=== PATIENT | male | born 1965 | race Two or more races ===

== ENCOUNTER 2018-01-14 09:25 | Inpatient (IN) | payer MEDICAID ==
[2018-01-14] VITALS (9 sets, daily range): BP systolic 135–198; BP diastolic 73–119; Ht 165.1 cm; Wt 70.4 kg
[~2018-01-14] VITALS: Ht 165.1 cm; Wt 70.4 kg
[2018-01-14 10:05] LABS: BASOPHIL % 0.5 % (0-2); PLATELET COUNT 215 x10^3mcL (130-400)
[2018-01-14 10:17] LABS: CALCIUM 8.2 mg/dL (8.5-10.1); CARBON DIOXIDE 35.5 mmol/L (21-32); CHLORIDE SERUM 107 mmol/L (98-107); GFR1 > 60 mL/min; GLUCOSE SERUM 89 mg/dL (74-106); SODIUM SERUM 145 mmol/L (136-145)
[2018-01-14 10:22] LABS: ALKALINE PHOSPHATASE 168 U/L (46-116); ALT/SGPT 101 U/L (16-63); AMYLASE 46 U/L (25-115); AST/SGOT 35 U/L (15-37); BILIRUBIN TOTAL 0.5 mg/dL (0.20-1.00); LIPASE 97 IU/L (73-393); TOTAL PROTEIN, SERUM 6.6 g/dL (6.4-8.2)
[2018-01-14 10:24] LABS: ALBUMIN 3.2 g/dL (3.4-5.0)
[2018-01-14 10:43] LABS: RED CELL DISTRIBUTION WIDTH 16.2 % (11.5-14.5)
[2018-01-14] MEDS ORDERED: ATENOLOL50 MG PO (15:28)
[2018-01-14 17:02] LABS: microscopic required? NO
[2018-01-14 17:09] LABS: urine erythrocyte NEGATIVE (NEGATIVE)
[2018-01-14 17:19] LABS: AMPHETAMINE QUAL UR NONE DETECTED (See below)
[2018-01-14 17:23] LABS: CHOLESTEROL/HDL RATIO 4.4; MAGNESIUM 1.9 mg/dL (1.8-2.4); PHOSPHOROUS 2.6 mg/dL (2.5-4.9)
[2018-01-14 17:36] LABS: FREE T4 1.11 ng/dL (0.76-1.46); FREE THYROXINE INDEX 3.1 ug/dL (1.4-4.5); T4(THYROXINE) 8.4 ug/dL (4.7-13.3)
[2018-01-14] MEDS ORDERED: LOV60I SC (17:40)
[2018-01-14] MEDS ORDERED: CLOPIDOGREL75 M1 PO (17:41)
[2018-01-14] MEDS ORDERED: ATORVASTATIN CA40 M1 PO (17:43)
[2018-01-14] MEDS ORDERED: ECO81 PO (17:44)
[2018-01-14] MEDS ORDERED: TOP50 PO (17:44)
[2018-01-14] MEDS ORDERED: ZOFI IV (17:45)
[2018-01-14 18:38] LABS: T3 TOTAL 0.98 ng/mL
[2018-01-15 00:20] VITALS: BP 145/82
== END 2018-01-15 00:35 | disposition short-term general hospital (02) | DRG 190 ==
LOC: ED 09:25 → DU 11:58
PROVIDERS: Emergency Medicine; Internal Medicine
DX: I21.3 ST elevation (STEMI) myocardial infarction of unspecified site (principal); E44.0 Moderate protein-calorie malnutrition; I50.9 Heart failure, unspecified; I44.7 Left bundle-branch block, unspecified; I16.1 Hypertensive emergency; R51 Headache; E87.6 Hypokalemia; E78.5 Hyperlipidemia, unspecified; Z68.26 Body mass index [BMI] 26.0-26.9, adult
CPT/HCPCS: 83880; 84439; J0360; J1650; J1885; J2270; J2405; J3490; Q0092

== ENCOUNTER 2018-03-03 23:05 | Inpatient (IN) | payer SELFPAY ==
[~2018-03-03] VITALS: Ht 165.1 cm; Wt 70.0 kg
[~2018-03-03 23:05] MED LIST: ATENOLOL50 MG PO; ATORVASTATIN CA40 M1 PO; CLOPIDOGREL75 M1 PO; ECO81 PO; LOV60I SC; TOP50 PO; ZOFI IV
[2018-03-03 23:14] VITALS: Ht 165.1 cm; Wt 70.0 kg
[2018-03-04] VITALS (8 sets, daily range): BP systolic 141–179; BP diastolic 76–114
[2018-03-04 00:12] LABS: BASOPHIL % 0.9 % (0-2); PLATELET COUNT 193 x10^3mcL (130-400)
[2018-03-04 00:15] LABS: microscopic required? NO
[2018-03-04 00:19] LABS: RED CELL DISTRIBUTION WIDTH 15.1 % (11.5-14.5)
[2018-03-04 00:24] LABS: urine erythrocyte NEGATIVE (NEGATIVE)
[2018-03-04 00:37] LABS: AMPHETAMINE QUAL UR NONE DETECTED (See below)
[2018-03-04 00:43] LABS: ALBUMIN 3.5 g/dL (3.4-5.0); ALKALINE PHOSPHATASE 190 U/L (46-116); ALT/SGPT 40 U/L (16-63); AST/SGOT 29 U/L (15-37); BILIRUBIN TOTAL 0.4 mg/dL (0.20-1.00); CALCIUM 8.9 mg/dL (8.5-10.1); CHLORIDE SERUM 106 mmol/L (98-107); CREATININE SERUM 1.5 mg/dL (0.7-1.3); FREE T4 1.11 ng/dL (0.76-1.46); GFR1 52 mL/min; GLUCOSE SERUM 110 mg/dL (74-106); LIPASE 162 IU/L (73-393); SODIUM SERUM 145 mmol/L (136-145); TOTAL PROTEIN, SERUM 7.4 g/dL (6.4-8.2)
[2018-03-04 00:51] LABS: POTASSIUM SERUM 2.6 mmol/L (3.5-5.1)
[2018-03-04 02:30] LABS: MAGNESIUM 2.3 mg/dL (1.8-2.4)
[2018-03-04] MEDS ORDERED: LIPITOR40 MG PO (03:30)
[2018-03-04] MEDS ORDERED: NOR10 PO ×2 (03:31→03:34)
[2018-03-04] MEDS ORDERED: KLOR-CON M2020 MEQ PO (03:31)
[2018-03-04] MEDS ORDERED: ISOSORBIDE MONO30 MG PO (03:32)
[2018-03-04] MEDS ORDERED: MINOXIDIL2.5 MG PO (03:33)
[2018-03-04] MEDS ORDERED: LISINOPRIL40 MG PO (03:34)
[2018-03-04] MEDS ORDERED: COREG6.25 M1 PO (03:34)
[2018-03-04 05:05] LABS: BASOPHIL % 0.4 % (0-2); PLATELET COUNT 181 x10^3mcL (130-400)
[2018-03-04 05:07] LABS: CALCIUM 8.6 mg/dL (8.5-10.1); CARBON DIOXIDE 34.3 mmol/L (21-32); CREATININE SERUM 1.4 mg/dL (0.7-1.3); MAGNESIUM 2.2 mg/dL (1.8-2.4); PHOSPHOROUS 2.6 mg/dL (2.5-4.9); POTASSIUM SERUM 3.1 mmol/L (3.5-5.1)
[2018-03-05 03:10] VITALS: BP 156/93
[2018-03-05 05:54] LABS: CALCIUM 8.8 mg/dL (8.5-10.1); CARBON DIOXIDE 28.6 mmol/L (21-32); CHLORIDE SERUM 107 mmol/L (98-107); CREATININE SERUM 1.3 mg/dL (0.7-1.3); GFR1 > 60 mL/min; GLUCOSE SERUM 93 mg/dL (74-106); MAGNESIUM 1.9 mg/dL (1.8-2.4); PHOSPHOROUS 3.9 mg/dL (2.5-4.9); SODIUM SERUM 144 mmol/L (136-145)
[2018-03-05 05:56] LABS: POTASSIUM SERUM 2.7 mmol/L (3.5-5.1)
[2018-03-05 07:43] LABS: BASOPHIL % 0.5 % (0-2); PLATELET COUNT 181 x10^3mcL (130-400)
[2018-03-05 07:45] LABS: RED CELL DISTRIBUTION WIDTH 15.6 % (11.5-14.5)
[2018-03-05 12:18] VITALS: BP 157/95
[2018-03-05 16:09] VITALS: BP 169/106
[2018-03-05 16:23] VITALS: BP 87/56
[2018-03-05 18:20] VITALS: BP 163/94
[2018-03-05 21:21] VITALS: BP 140/80
[2018-03-06 04:48] VITALS: BP 127/64
[2018-03-06 06:34] LABS: BASOPHIL % 0.4 % (0-2); PLATELET COUNT 196 x10^3mcL (130-400)
[2018-03-06 06:39] LABS: CALCIUM 8.8 mg/dL (8.5-10.1); CARBON DIOXIDE 30.1 mmol/L (21-32); CREATININE SERUM 1.6 mg/dL (0.7-1.3); MAGNESIUM 2.3 mg/dL (1.8-2.4); PHOSPHOROUS 4.9 mg/dL (2.5-4.9)
[2018-03-06 06:44] LABS: POTASSIUM SERUM 2.8 mmol/L (3.5-5.1)
[2018-03-06 06:45] LABS: RED CELL DISTRIBUTION WIDTH 15.2 % (11.5-14.5)
[2018-03-06 08:34] VITALS: BP 127/62
[2018-03-06 12:16] VITALS: BP 137/87
[2018-03-06] MEDS ORDERED: ADA30 PO (12:36)
[2018-03-06] MEDS ORDERED: CARVEDILOL12.5 M1 PO (12:37)
[2018-03-06 14:51] VITALS: BP 137/87
[2018-03-06] MEDS ORDERED: IBU800 M2 PO (15:51)
[2018-03-06] MEDS ORDERED: FUROSEMIDE40 MG PO (15:55)
== END 2018-03-06 20:24 | disposition home or self-care (01) | DRG 682 ==
LOC: ED 23:05 → IC 03-04 02:08 → DU 03-04 02:08 → IC 03-04 02:38 → DU 03-05 15:58
PROVIDERS: Emergency Medicine; Internal Medicine
DX: N17.0 Acute kidney failure with tubular necrosis (principal); I50.43 Acute on chronic combined systolic (congestive) and diastolic (congestive) heart failure; I42.9 Cardiomyopathy, unspecified; I16.1 Hypertensive emergency; J81.1 Chronic pulmonary edema; I25.10 Atherosclerotic heart disease of native coronary artery without angina pectoris; I11.0 Hypertensive heart disease with heart failure; I16.0 Hypertensive urgency; E87.6 Hypokalemia; E78.5 Hyperlipidemia, unspecified; Z95.810 Presence of automatic (implantable) cardiac defibrillator; I25.2 Old myocardial infarction
CPT/HCPCS: 83880; 84439; 87804; 94150; G0480; J0360; J1940; J2270; J3480; J3490; J7620; Q0092

== ENCOUNTER 2018-06-04 12:29 | Inpatient (IN) | payer MEDICAID ==
[~2018-06-04] VITALS: Ht 165.1 cm; Wt 74.6 kg
[~2018-06-04 12:29] MED LIST changes: +ADA30 PO; +CARVEDILOL12.5 M1 PO; +COREG6.25 M1 PO; +FUROSEMIDE40 MG PO; +IBU800 M2 PO; +KLOR-CON M2020 MEQ PO; +LIPITOR40 MG PO; +LISINOPRIL40 MG PO; +MINOXIDIL2.5 MG PO; +NOR10 PO
--- NOTE | 2018-06-04 12:43 | NUR ---
EKG IN PROG
[2018-06-04 13:34] LABS: AMPHETAMINE QUAL UR NONE DETECTED (See below)
[2018-06-04 13:34] LABS: ALBUMIN 3.7 g/dL (3.4-5.0); ALKALINE PHOSPHATASE 158 U/L (46-116); ALT/SGPT 38 U/L (16-63); AST/SGOT 31 U/L (15-37); BILIRUBIN TOTAL 0.3 mg/dL (0.20-1.00); CALCIUM 8.3 mg/dL (8.5-10.1); CARBON DIOXIDE 33.2 mmol/L (21-32); CHLORIDE SERUM 106 mmol/L (98-107); CREATININE SERUM 1.3 mg/dL (0.7-1.3); GFR1 > 60 mL/min; GLUCOSE SERUM 98 mg/dL (74-106); SODIUM SERUM 144 mmol/L (136-145); TOTAL PROTEIN, SERUM 7.6 g/dL (6.4-8.2)
[2018-06-04 13:35] LABS: POTASSIUM SERUM 2.8 mmol/L (3.5-5.1)
[2018-06-04 13:39] LABS: BASOPHIL % 0.7 % (0-2); PLATELET COUNT 203 x10^3mcL (130-400)
[2018-06-04 13:44] LABS: RED CELL DISTRIBUTION WIDTH 15.1 % (11.5-14.5)
--- NOTE | 2018-06-04 13:57 | NUR ---
PT PRESENTED TO THE ED FOR CHEST PAIN LOCATED OVER RIGHT LOWER PEC, OVER PACEMAKER INSERTION SITE, AND IN RIGHT GROIN X 2 MONTHS. PT STATES THEY HAD A PACEMAKER PLACED IN JANUARY 2018 AND HAS BEEN FEELING A "PULSING" PAIN IN THE AREA FOR THE LAST 2 MONTHS. PT STATES PAIN IN GROIN IS AT SITE OF PAST SURGERY. PT STATES PAIN RADIATES TO RIGHT SIDE OF NECK. DENIES ANY NAUSEA, VOMITING, DIARRHEA, FEVER, OR SOB. PT STATES PAIN HAS BEEN CONSTANT AND NOTHING MAKES IT BETTER OR WORSE. PT IN NAD. BREATHING EVEN AND UNLABORED. AWAKE, ALERT, AND ORIENTED. WILL CONTINUE TO MONITOR. MSE COMPLETED BY DR BLOOD.
[2018-06-04 14:47] LABS: microscopic required? NO
[2018-06-04 14:51] LABS: urine erythrocyte NEGATIVE (NEGATIVE)
[2018-06-04] MEDS ORDERED: LASIX40 MG PO (15:08)
[2018-06-04] MEDS ORDERED: ZESTRIL40 MG PO (15:09)
[2018-06-04] MEDS ORDERED: ADALAT CC30 MG PO (15:09)
[2018-06-04 15:11] LABS: CHOLESTEROL/HDL RATIO 5.6; MAGNESIUM 2.3 mg/dL (1.8-2.4); PHOSPHOROUS 3.4 mg/dL (2.5-4.9)
[2018-06-04 15:20] LABS: FREE T4 1.03 ng/dL (0.76-1.46); T4(THYROXINE) 8.9 ug/dL (4.7-13.3)
--- NOTE | 2018-06-04 15:27 | NUR ---
REPORT CALLED TO JACKIE EXT [phone]
[2018-06-04 15:28] LABS: T3 TOTAL 1.24 ng/mL
--- NOTE | 2018-06-04 15:36 | NUR ---
RECEIVED PT FROM ED VIA [facility], CAME IN DUE TO LEFT CHEST PAIN. AAOX4. C/O 7/10 HEADACHE AND MILD DIZZINESS. ABLE TO FOLLOW COMMANDS. NO SOB NOTED, LUNG SOUNDS CTA. C/O 7/10 LEFT SIDED CHEST PAIN DESCRIBED PRESSURE, SR W/ BBB AND ELEVATED ST. W/ LEFT CHEST PACEMAKER. DENIES ABDOMINAL DISCOMFORT. C/O 9/10 RLE PAIN, ABLE TO MOVE ALL EXTREMITIES. IV SITE ON THE LAC GAUGE 20 IS PATENT AND INTACT. SIDE RAILS UPX2. CALL LIGHT ON REACH. ENDORSED TO PRIMARY NURSE JACKIE FOR CONTINUITY OF CARE
[2018-06-04 15:47] VITALS: BP 129/80
[2018-06-04 15:50] VITALS: Ht 165.1 cm; Wt 74.6 kg
--- NOTE | 2018-06-04 16:00 | NUR ---
PT C/O RIGHT LOWER LEG PAIN 5/10, MEDICATED PER EMAR.
[2018-06-04 16:40] VITALS: BP 129/83
[2018-06-04] MEDS ORDERED: LIPITOR40 MG PO (16:47)
[2018-06-04] MEDS ORDERED: CARVEDILOL12.5 M1 PO (17:00)
[2018-06-04] MEDS ORDERED: ISOSORBIDE MONO30 MG PO (17:01)
[2018-06-04] MEDS ORDERED: CLOPIDOGREL75 M1 PO (17:01)
[2018-06-04] MEDS ORDERED: ECO81 PO (17:01)
--- NOTE | 2018-06-04 17:10 | NUR ---
PT STATED RIGHT UPPER LEG PAIN IS MUCH BETTER WITH NORCO. DENIES ANY CP OR PRESSURE. WILL CONTINUE PLAN OF CARE .
--- NOTE | 2018-06-04 18:10 | NUR ---
NO ACUTE CHANGES AT THIS TIME. NO ACUTE RESP DISTRESS OR SOB NOTED. DENIES ANY CP OR PRESSURE. IV TO THE LAC INTACT AND PATIENT. KCI 20 MEQ CURRENTLY INFUSING AT 68.1 MLS/HR DENIES ANY PAIN OR DISCOMFORT AT SITE. CALL LIGHT IN REACH. BED IN LOW POSITION. WILL ENDORSE TO INCOMING RN.
[2018-06-04 21:10] VITALS: BP 136/86
--- NOTE | 2018-06-04 21:24 | NUR ---
RECEIVED PT IN BED AAOX4 NO ACUTE DISTRESS NOTED , PT DENY CHEST PAIN AT THE MOMENT , TELE NUMBER 8 SHOWS PACED, PIV INTACT INFUSING WELL K-RIDER , LUNG SOUNDS CTA , ABD SOFT BS ACTIVE X4, CALL LIGHT WITHIN PT'S REACH , WILL CON'T TO MONITOR AND ASSIST PT WITH CARE .
--- NOTE | 2018-06-05 02:10 | NUR ---
PT'S IN BED WITH EYES CLOSED , TELE PACED .
[2018-06-05 05:54] VITALS: BP 156/108
[2018-06-05 06:20] LABS: BASOPHIL % 0.9 % (0-2); PLATELET COUNT 204 x10^3mcL (130-400)
--- NOTE | 2018-06-05 06:28 | NUR ---
NO CHANGES OF CONDITION NOTED ALL DUE MEDS GIVEN NO REACTION NOTED,PT'S IN BED AWAKE NO ACUTE DISTRESS NOTED, HL INTACT , TELE NSR .
[2018-06-05 06:31] LABS: CALCIUM 8.8 mg/dL (8.5-10.1); CARBON DIOXIDE 29.1 mmol/L (21-32); CHLORIDE SERUM 107 mmol/L (98-107); CREATININE SERUM 1.3 mg/dL (0.7-1.3); GFR1 > 60 mL/min; GLUCOSE SERUM 94 mg/dL (74-106); SODIUM SERUM 145 mmol/L (136-145)
[2018-06-05 06:39] LABS: POTASSIUM SERUM 2.8 mmol/L (3.5-5.1)
[2018-06-05 06:43] LABS: RED CELL DISTRIBUTION WIDTH 15.1 % (11.5-14.5)
--- NOTE | 2018-06-05 06:53 | NUR ---
K+2.8 BETTY SCHMIDT , WILL ENDORSE TO AM NURSE TO F/U.
--- NOTE | 2018-06-05 07:30 | NUR ---
PATIENT SITTIING UP IN BED, AWAKE, ALERT ABLE TO VERBALIZE NEEDS WELL. HL LEFT A/C, FLUSHED WELL, NO REDNESS OR SWELLING NOTED. TELE 8 PACED ON DEMAND. DENIES ANY CHEST PAIN AT THIS TIME. RESP EVEN AND UNLABORED, LUNGS CLEAR ON ROOM AIR. AMBULATES AD RIRI TO THE BATHROOM. NO ACUTE DISTRESS NOTED. WILL CONTINUE TO MONITOR.
[2018-06-05 08:40] VITALS: BP 176/106
--- NOTE | 2018-06-05 09:05 | NUR ---
PATIENT'S PLAN OF CARE WAS DISCUSSED AND REVIEWED WITH WOOL WASHER: ANTONIETTA MOJICA
[2018-06-05 11:34] VITALS: BP 156/96
--- NOTE | 2018-06-05 13:36 | NUR ---
PATIENT REMAINS IN BED. K-ERNESTINE INFUSING WELL FOR K+ LEVEL OF 2.8 TODAY. ORAL K+ ALSO GIVEN. MEDICATED EARLIER WITH NORCO PO FOR C/O H/A WITH GOOD RELIEF PER PATIENT. NO ACUTE DISTRESS NOTED. WILL CONTINUE TO MONITOR.
--- NOTE | 2018-06-05 15:20 | NUR ---
PATIENT REMAINS IN BED WATCHING TV. NO FURTHER C/O H/A. NO ACUTE DISTRESS NOTED. WILL CONTINUE TO MONITOR.
--- NOTE | 2018-06-05 16:26 | NUR ---
PATIENT C/O HAVING DRY EYES. DR GONZALES NOTIFIED AND NEW ORDER RECEIVED. PATIENT MEDICATED WITH TEARISOL OPTH GTTS ORDERED. WILL CONTINUE TO MONITOR.
[2018-06-05 16:57] LABS: CALCIUM 8.3 mg/dL (8.5-10.1); CARBON DIOXIDE 32.1 mmol/L (21-32); CHLORIDE SERUM 106 mmol/L (98-107); CREATININE SERUM 1.1 mg/dL (0.7-1.3); GFR1 > 60 mL/min; GLUCOSE SERUM 92 mg/dL (74-106); POTASSIUM SERUM 3.2 mmol/L (3.5-5.1); SODIUM SERUM 143 mmol/L (136-145)
[2018-06-05 17:00] VITALS: BP 162/100
--- NOTE | 2018-06-05 17:01 | NUR ---
DR GONZALES NOTIFIED OF PATIENT'S K+ LEVEL AT THIS TIME AFTER K-ERNESTINE AND PO K+ GIVEN OF 3.2. DR GONZALES TO GIVE NEW ORDER.
--- NOTE | 2018-06-05 17:14 | NUR ---
PATIENT C/ HAVING A H/A 8/10 ON THE PAIN SCALE. MEDICATED WITH NORCO PO AT THIS TIME. WILL CONTINUE TO MONITOR. K+ PO 40MEQ GIVEN AT THIS TIME FOR K+ LEVEL OF 3.2.
--- NOTE | 2018-06-05 17:57 | NUR ---
I HAVE REVIEWED THE DATA COLLECTION BY PORFIRIO (NAME): ANTONIETTA MOJICA ENTERED ON (DATE/TIME): 06/05/18 [id number] I CONCUR WITH THE DATA AND ANY EXCEPTIONS OR COMMENTS ARE LISTED BELOW:
--- NOTE | 2018-06-05 18:00 | NUR ---
DR GONZALES NOTIFIED OF PATIENT'S B/P OF 173/100 AT THIS TIME. NEW ORDERS RECEIVED. WILL MEDICATE ORDERED.
--- NOTE | 2018-06-05 19:33 | NUR ---
RECEIVED PT FROM PREVIOUS SHIFT NURSE. PT AOX4. TELE #8, PACED ON DEMAND, HR 64. DENIES CP/PRESSURE. PULSES PALPABLE, NO EDEMA NOTED. LUNG SOUNDS CLEAR, ON RA. DENIES SOB/DIFFICULTY BREATHING. BOWEL SOUNDS ACTIVE. VOIDS FREELY. AMBULATORY. SKIN INTACT. IV TO LAC, INTACT AND PATENT. BED IN LOWEST POSITION. CALL LIGHT WITHIN REACH. WILL CONTINUE TO MONITOR.
[2018-06-05 21:52] VITALS: BP 166/98
[2018-06-06] VITALS (7 sets, daily range): BP systolic 135–177; BP diastolic 80–103
--- NOTE | 2018-06-06 03:35 | NUR ---
PT RESTING IN BED. RR EVEN AND UNLABORED. NO ACUTE DISTRESS NOTED. CALL LIGHT WITHIN REACH. BED IN LOWEST POSTIION. WILL CONTINUE TO MONITOR.
[2018-06-06 06:58] LABS: CALCIUM 8.6 mg/dL (8.5-10.1); CARBON DIOXIDE 32.2 mmol/L (21-32); CHLORIDE SERUM 108 mmol/L (98-107); GFR1 > 60 mL/min; GLUCOSE SERUM 90 mg/dL (74-106); POTASSIUM SERUM 3.2 mmol/L (3.5-5.1); SODIUM SERUM 146 mmol/L (136-145)
--- NOTE | 2018-06-06 07:15 | NUR ---
PT FOUND AMBULATING IN ROOM, STEADY GAIT NOTED. EFFORTLESS BREATHING ON ROOM AIR. DENIES CHEST PAIN, SOB AT MOMENT. IV SITE PRESENT TO LAC#20, CALL LIGHT WITHIN REACH.
[2018-06-06 08:30] LABS: BASOPHIL % 0.8 % (0-2); PLATELET COUNT 180 x10^3mcL (130-400)
[2018-06-06 08:41] LABS: RED CELL DISTRIBUTION WIDTH 15.5 % (11.5-14.5)
--- NOTE | 2018-06-06 09:00 | NUR ---
PASSED MORNING MEDICATIONS. TOLERATED WELL. DENIES ANY DISCOMFORT AT MOMENT. CALL LIGHT WITHIN REACH.
--- NOTE | 2018-06-06 13:55 | NUR ---
APRESOLINE 25mg GIVEN FOR BP:165/108,HR:59 PT REPORTS SEVERE HEADACHE, TEMPORAL VEINS VISIBLE IN HIGH FOWLERS. [employer] TMR TEACHER CONTACTED, AND MADE AWARE OF SITUATION AND STATUS. ORDER RECEIVED TO INCREASE COREG DOSE TO 50mg BID AND TO HOLD DISCHARGE FOR 06/07/18. WILL MEDICATE PT FOR HEADACHE PER EMAR.
--- NOTE | 2018-06-06 14:57 | NUR ---
CHARGE NURSE MADE AWARE OF SITUATION, ENTRY LEVEL ADMINISTRATIVE ASSISTANT DESIRAECALLED, ORDER RECEIVED FOR CT SCAN HEAD W/O IV CONTRAST. AND ORDER FOR HYDRALAZINE.
--- NOTE | 2018-06-06 15:01 | NUR ---
PT TAKEN TO CT SCAN NOW, TRANSPORTED VIA BED.
--- NOTE | 2018-06-06 15:43 | NUR ---
RECHECK THE B/P 156/, WILL CONTINUE TO MONITOR THE PT.
--- NOTE | 2018-06-06 16:12 | NUR ---
1510: PT BACK FROM CT SCAN, PT REPORTS HEADACHE. 1515: MEDICATED PER EMAR FOR HIGH BP. TOLERATED WELL. CALL LIGHT WITHIN REACH. WILL CONTINUE TO MONITOR.
--- NOTE | 2018-06-06 18:13 | NUR ---
PT C/O SEVERE HEADACHE POST TYLENOL ADMINISTRATTION, DR. MATT CONTACTED AND DEBRIEF OF PT'S STATUS. FIORICET ADMINISTERED PER EMAR. PT TOLERATED WELL. PT SLLEPING AT MOMENT. EFFORTLESS BREATHING NOTED. COMFORTABLE ENVIRONMENT PROVIDED. BED IN LOWEST POSITION, CALL LIGHT WITHIN REACH.
--- NOTE | 2018-06-06 19:30 | NUR ---
RECIEVED PATIENT AT START OF SHIFT AWAKE, A/O X4. PATIENT IS REPORTING 10/10 HEADACHE. PATIENT REPORTS THE PREVIOUS NURSE ,SARTHAK GAVE HIM PAIN MEDICATION JUST BEFORE I ARRIVED, AND THAT HED LIKE TO WAIT UNTIL 2200 BEFORE HE TRIES ANY OTHER PRN PAIN MEDICATIONS. LAST BP WAS 152/ 91. HR 60, PACED ON DEMAND. ON TELE MONITOR NUMBER 8. DENIES CHEST PAIN. PULSES ARE BOUNDING. NO EDEMA NOTED. SCDS IN PLACE. LUNGS CTAB, SATTING 98% ON RA. BOWEL SOUNDS ACTIVE, ABDOMEN SOFT. PATIENT IS AMBULATORY AND STEADY ON HS FEET. SKIN IS INTACT. IV TO LAC IS SALINE LOCKED AND PATENT. BED LOCKED AND IN LOWEST POSITION. CALL LIGHT AND BEDSIDE TABLE WITHIN REACH. WILL CONTINUE TO MONITOR.
--- NOTE | 2018-06-07 01:00 | NUR ---
PATIENT'S EYES ARE CLOSED, RESPIRATIONS EVEN AND REGULAR. NO SIGNS OF DISTRESS. WILL CONTINUE TO MONITOR.
[2018-06-07 05:47] VITALS: BP 148/82
--- NOTE | 2018-06-07 06:40 | NUR ---
PATIENT SLEPT WELL THROUGH THE NIGHT. HE REPORTS HIS HEAD ACHE IS AT 7/10 BUT DOESNT WANT PAIN MEDICATION UNTIL AFTER HE EATS BREAKFAST. IV SALINE LOCKED AND PATENT. BED LOCKED AND IN LOWEST POSITION. CALL LIGHT WITHIN REACH. WILL ENDORSE CARE TO MORNING NURSE.
[2018-06-07 08:45] VITALS: BP 168/102
[2018-06-07 12:02] VITALS: BP 160/104
--- NOTE | 2018-06-07 12:18 | NUR ---
[employer] INSURANCE ADJUSTER CONTACTED AND MADE AWARE OF PT'S BLOOD PRESSURE HIGH. WILL AWAIT ORDERS.
[2018-06-07 17:00] VITALS: BP 161/108
--- NOTE | 2018-06-07 18:17 | NUR ---
PT IN LOW FOWLERS, DENIES CHEST PAIN, SOB, DIZZINESS. PT REPORTS HEADACHE TROUGHOUT ENTIRE HEAD STATES IS AT A TOLERABLE LEVEL AT THIS TIME 07/25. PT MEDICATED PER EMAR FOR HIGH BP. TOLERATED WELL. IV PATENT TO LAC#20. CALL LIGHT WITHIN REACH.
[2018-06-07 18:40] VITALS: BP 124/71
--- NOTE | 2018-06-07 18:51 | NUR ---
PT SITTING AT SIDE OF BED. NO ARM DRIFT PRESENT. TRACKS MOVEMENT. +5 STRENGTH BILATERALLY WITH NO UNILATERAL DEFICIT EVIDENT AT THIS TIME. GAIT STEADY. EFFORTLESS BREATHING ON ROOM AIR. PT INSTRUCTED TO USE CALL LIGHT.
--- NOTE | 2018-06-07 19:30 | NUR ---
RECIEVED PATIENT AT START OF SHIFT AWAKE, A/O X4 REPORTING 7/10 HEADACHE. WILL ADMINISTER NORCO PER EMAR. PATIENT ON TELE NUMBER 8 PACED ON DEMAND. DENIES CHEST PAIN. PULSES BOUNDING. VEINS ON FOREHEAD ARE BULGING. LUNGS CLEAR ON RA, NO SOB. ABDOMEN SOFT, BOWEL SOUNDS ACTIVE. IV PATENT, SALINE LOCKED. SCDS IN PLACE. BED LOCKED AND IN LOWEST POSITION. CALL LIGHT AND BEDSIDE TABLE WITHIN REACH. WILL CONTINUE TO MONITOR.
[2018-06-07 20:06] VITALS: BP 148/85
--- NOTE | 2018-06-07 22:32 | NUR ---
PATIENT REPORTED NO RELIEF OF HEADACHE. FIORICET ADMINISTERED PER EMAR AT 2232. BP RECHECK BEFORE ADMIN OF APRESOLINE WAS 136/82. WILL CONTINUE TO MONITOR.
[2018-06-08 06:27] VITALS: BP 141/90
--- NOTE | 2018-06-08 06:51 | NUR ---
PATIENT WOKE UP AND REPORTED HIS HEAD ACHE IS TOLERABLE AT 3/10. NO FURTHER SIGNIFICANT EVENTS THIS SHIFT. WILL ENDORSE CARE TO MORNING NURSE.
--- NOTE | 2018-06-08 07:30 | NUR ---
PATIENT IN BED, AWAKE ALERT ABLE TO VERBALIZE NEEDS WELL. HL PATENT FLUSHED WELL. TELE 8 PACED. RESP EVEN AND UNLABORED, LUNGS CLEAR ON ROOM AIR. DENIES ANY H/A OR DIZZINESS. AMBULATES AD RIRI. WILL CONTINUE TO MONITOR.
[2018-06-08 08:59] VITALS: BP 150/88
[2018-06-08 11:39] VITALS: BP 152/101
--- NOTE | 2018-06-08 13:49 | NUR ---
PATIENT REMAINS IN BED. DENIES ANY H/A OR DIZZINESS. NO ACUTE DISTRESS NOTED. WILL CONTINUE TO MONITOR.
[2018-06-08 14:00] VITALS: BP 123/73
[2018-06-08] MEDS ORDERED: NOR10 PO (16:35)
[2018-06-08] MEDS ORDERED: CORE25 PO (16:35)
[2018-06-08] MEDS ORDERED: ZESTRIL40 MG PO (16:35)
[2018-06-08 16:39] VITALS: BP 123/73
--- NOTE | 2018-06-08 18:31 | NUR ---
I HAVE REVIEWED THE DATA COLLECTION BY PORFIRIO (NAME): ANTONIETTA MOJICA ENTERED ON (DATE/TIME): 06/08/18 I CONCUR WITH THE DATA AND ANY EXCEPTIONS OR COMMENTS ARE LISTED BELOW:
--- NOTE | 2018-06-08 18:32 | NUR ---
PATIENT READY FOR D/C HOME. HL AND TELE DC'D. DISCHARGE INSTRUCTIONS GIVEN AND PERSONAL BELONGINGS LIST SIGNED. CONDITION APPEARS STABLE AT THIS TIME.
== END 2018-06-08 20:49 | disposition home or self-care (01) | DRG 243 ==
LOC: ED 12:29 → DU 14:44
PROVIDERS: Emergency Medicine; Internal Medicine; ADMIT Family Medicine
DX: K21.9 Gastro-esophageal reflux disease without esophagitis (principal); I11.0 Hypertensive heart disease with heart failure; I50.22 Chronic systolic (congestive) heart failure; I45.9 Conduction disorder, unspecified; I16.0 Hypertensive urgency; I44.7 Left bundle-branch block, unspecified; M94.0 Chondrocostal junction syndrome [Tietze]; M79.604 Pain in right leg; E78.5 Hyperlipidemia, unspecified; E87.6 Hypokalemia; Z68.29 Body mass index [BMI] 29.0-29.9, adult; Z95.810 Presence of automatic (implantable) cardiac defibrillator; Z79.82 Long term (current) use of aspirin
CPT/HCPCS: 83880; 84439; J0360; J3480; Q0092

== ENCOUNTER 2018-10-04 20:47 | Inpatient (IN) | payer MEDICAID ==
[~2018-10-04] VITALS: Ht 170.2 cm; Wt 78.0 kg
[~2018-10-04 20:47] MED LIST changes: +ADALAT CC30 MG PO; +CORE25 PO; +ISOSORBIDE MONO30 MG PO; +LASIX40 MG PO; +ZESTRIL40 MG PO
[2018-10-04 20:54] VITALS: Ht 170.2 cm; Wt 78.0 kg
--- NOTE | 2018-10-04 21:23 | NUR ---
PATIENT SEEN WITH COMPLAINT OF DIZZINESS AND HEART PALPITATION X 3 DAYS. MD AT THE BEDSIDE.
--- NOTE | 2018-10-04 21:31 | NUR ---
PATIENT WAS SEEN BY .
[2018-10-04 22:06] LABS: BASOPHIL % 0.7 % (0-2); PLATELET COUNT 183 x10^3mcL (130-400)
[2018-10-04 22:11] LABS: ALBUMIN 3.5 g/dL (3.4-5.0); ALKALINE PHOSPHATASE 144 U/L (46-116); ALT/SGPT 39 U/L (16-63); AST/SGOT 18 U/L (15-37); BILIRUBIN TOTAL 0.24 mg/dL (0.20-1.00); CALCIUM 9.1 mg/dL (8.5-10.1); CARBON DIOXIDE 26.9 mmol/L (21-32); CHLORIDE SERUM 107 mmol/L (98-107); CREATININE SERUM 1.2 mg/dL (0.7-1.3); GFR1 > 60 mL/min; GLUCOSE SERUM 110 mg/dL (74-106); SODIUM SERUM 145 mmol/L (136-145); TOTAL PROTEIN, SERUM 7.1 g/dL (6.4-8.2)
[2018-10-04 22:13] LABS: POTASSIUM SERUM 2.7 mmol/L (3.5-5.1)
[2018-10-04 22:26] LABS: RED CELL DISTRIBUTION WIDTH 14.6 % (11.5-14.5)
[2018-10-04 23:05] LABS: UA SPECIFIC GRAVITY 1.015 (1.005-1.035); microscopic required? YES; urine erythrocyte NEGATIVE (NEGATIVE)
--- NOTE | 2018-10-04 23:17 | NUR ---
POTASSIUM SRINIVAS INFUSING FOR 2.7 K= AND MAGNESIUN INFUSING. PATIENT WAS MEDICATED WITH REGLAN AND TYLENOL.
[2018-10-04 23:25] LABS: AMPHETAMINE QUAL UR NONE DETECTED (See below)
--- NOTE | 2018-10-04 23:39 | NUR ---
PATIENT REQUESTED FOOD WAS GIVEN A SANDWICH. PATIENT HAD NO COMPLAINT AT THIS TIME. REPORT WAS GIVEN TO QUYEN. PATIENT TRANSPORTED TO ROOM 234.B.POTASSIUM RIDER INDUSING 2 68 ML/HR AND MAGNESIUM @ 25 ML/HR
--- NOTE | 2018-10-05 00:05 | NUR ---
PATIENT TRANSPORTED TO ROOM 234B
--- NOTE | 2018-10-05 00:10 | NUR ---
RECEIVED PT FROM ED, CAME IN DUE TO CHEST PAIN. AAOX4. C/O DIZZINESS. ABLE TO FOLLOW COMMANDS. C/O MILD SOB, LUNG SOUNDS CTA, O2 SAT=97%, RA. DENIES CHEST PAIN/PRESSURE. W/ LEFT CHEST PACEMAKER. C/O NAUSEA BUT DENIES ABDOMINAL PAIN. ABDOMEN IS SOFT. BOWEL SOUNDS ACTIVE. VOIDS. IV SITE PATENT AND INTACT. SIDE RAILS UPX2. CALL LIGHT ON REACH. PRIMARY NURSE QUYEN AT BEDSIDE FOR CONTINUITY OF CARE
[2018-10-05 00:15] VITALS: BP 160/92
[2018-10-05 00:28] LABS: MAGNESIUM 2.3 mg/dL (1.8-2.4); PHOSPHOROUS 3.2 mg/dL (2.5-4.9)
[2018-10-05 00:36] LABS: CHOLESTEROL/HDL RATIO 7.9
[2018-10-05 01:26] LABS: T3 TOTAL 1.3 ng/mL
[2018-10-05 01:27] LABS: FREE T4 0.97 ng/dL (0.76-1.46); FREE THYROXINE INDEX 2.5 ug/dL (1.4-4.5); T4(THYROXINE) 7.2 ug/dL (4.7-13.3)
--- NOTE | 2018-10-05 03:10 | NUR ---
PT RESTING COMFORTABLE IN BED. NO ACUTE DISTRESS NOTED. EVEN AND UNLABORED RESPIRATIONS ON RA. ON TELE # 5 READING ATRIAL PACED RHYTHM AT 60BPM. IV PATENT AND INTACT. K RIDER FINISHED. NS STARTED AT 25MLS/HR PER EMAR. STRICT I&O IN PLACED. BED IN LOWEST POSITION. SIDE RAILS UPX2. CALL LIGHT WITHIN REACH. WILL CONTINUE TO MONITOR.
[2018-10-05 04:11] VITALS: BP 153/81
--- NOTE | 2018-10-05 06:09 | NUR ---
PT SLEPT COMFORTABLY IN INTERVALS THROUGHOUT THE SHIFT. NO ACUTE DISTRESS NOTED. EVEN AND UNLABORED RESPIRATIONS ON RA. ON TELE #5 READING ATRIAL PACED ON DEMAND RHYTHM AT 60BPM. IV PATENT AND INTACT RUNNING FLUIDS PER EMAR. STRICT I&O IN PLACE. ALL NEEDS TENDED TO AND MET. ALL SCHEDULED MEDICATIONS GIVEN. BED IN LOWEST POSITION. SIDE RAILS UPX2. CALL LIGHT WITHIN REACH. WILL ENDORSE TO ONCOMING SHIFT.
--- NOTE | 2018-10-05 07:25 | NUR ---
RECEIVED PT FROM SHIFT NURSE ASLEEP BUT AROUSABLE. APPEARS IN NO ACUTE DISTRESS. RESP EVEN AND UNLABORED ON RA. IV INTACT AND PATENT. BED IN LOW POSITION. CALL LIGHT WITHIN REACH. WILL CONTINUE TO MONITOR.
[2018-10-05 07:49] LABS: CALCIUM 8.5 mg/dL (8.5-10.1); CARBON DIOXIDE 28.6 mmol/L (21-32); CHLORIDE SERUM 108 mmol/L (98-107); CREATININE SERUM 1.2 mg/dL (0.7-1.3); GFR1 > 60 mL/min; GLUCOSE SERUM 85 mg/dL (74-106); MAGNESIUM 2.7 mg/dL (1.8-2.4); PHOSPHOROUS 3.4 mg/dL (2.5-4.9); SODIUM SERUM 146 mmol/L (136-145)
[2018-10-05 07:59] LABS: POTASSIUM SERUM 2.6 mmol/L (3.5-5.1)
--- NOTE | 2018-10-05 08:06 | NUR ---
RECEIVED CALL FROM LAB K+2.6. PAGED DR. OROZCO. AWAITING CALL BACK. WILL CONTINUE TO MONITOR.
[2018-10-05 09:05] VITALS: BP 166/97
--- NOTE | 2018-10-05 09:59 | NUR ---
Discount pharmacy card and list to low cost medical clinics given to patient by Roxy.
--- NOTE | 2018-10-05 10:23 | NUR ---
PT LYING IN BED RESTING. NO ACUTE DISTRESS NOTED. NO C/O OF CHEST PAIN OR PRESSURE. CALL LIGHT WITHIN REACH. WILL CONTINUE TO MONITOR.
[2018-10-05 10:37] VITALS: BP 129/84
[2018-10-05 10:47] LABS: BASOPHIL % 0.7 % (0-2); PLATELET COUNT 170 x10^3mcL (130-400)
[2018-10-05 10:56] LABS: RED CELL DISTRIBUTION WIDTH 15.2 % (11.5-14.5)
--- NOTE | 2018-10-05 12:14 | NUR ---
PT C/O OF HEADACHE 12/25. GAVE NORCO ORDERED. WILL CONTINUE TO MONITOR.
--- NOTE | 2018-10-05 12:42 | NUR ---
PT EXPRESSED RELIEF OF HEADACHE. WILL CONTINUE TO MONITOR.
[2018-10-05] MEDS ORDERED: POTASSIUM CHLO20 ME1 PO (13:06)
[2018-10-05 13:27] VITALS: BP 118/80
[2018-10-05] MEDS ORDERED: CORE25 PO (13:28)
[2018-10-05 13:36] VITALS: BP 118/80
--- NOTE | 2018-10-05 15:23 | NUR ---
PT A/OX4 UPON DC. NO ACUTE DISTRESS NOTED. IV REMOVED AND CATH INTACT. EDUCAITON PROVIDED. NEW RX GIVEN. INSTRUCTED TO FOLLOW UP WITH PCP. PT VERBALIZED UNDERSTANDING. PERSONAL BELONGINGS TAKEN HOME. ACCOMPANIED BY CLERICAL ASSOCIATE TO LOBBY.
== END 2018-10-05 15:00 | disposition home or self-care (01) | DRG 203 ==
LOC: ED 20:47 → DU 22:41
PROVIDERS: Emergency Medicine; ADMIT General Practice
DX: M94.0 Chondrocostal junction syndrome [Tietze] (principal); N17.0 Acute kidney failure with tubular necrosis; I11.0 Hypertensive heart disease with heart failure; I50.22 Chronic systolic (congestive) heart failure; I42.9 Cardiomyopathy, unspecified; I44.7 Left bundle-branch block, unspecified; E87.6 Hypokalemia; E02 Subclinical iodine-deficiency hypothyroidism; E78.5 Hyperlipidemia, unspecified; R80.9 Proteinuria, unspecified; Z79.82 Long term (current) use of aspirin; Z68.26 Body mass index [BMI] 26.0-26.9, adult; Z95.810 Presence of automatic (implantable) cardiac defibrillator
CPT/HCPCS: 83880; 84439; 85378; G0378; J2405; J2765; J3475; J3480; J7030; J7050; Q0092

== ENCOUNTER 2019-04-27 23:20 | Inpatient (IN) | payer SELFPAY ==
[~2019-04-27] VITALS: Ht 165.1 cm; Wt 78.5 kg
[~2019-04-27 23:20] MED LIST changes: +POTASSIUM CHLO20 ME1 PO
[2019-04-27 23:29] VITALS: Ht 165.1 cm; Wt 78.5 kg
[2019-04-28 00:57] LABS: BASOPHIL % 0.8 % (0-2); PLATELET COUNT 193 x10^3mcL (130-400)
[2019-04-28 01:02] LABS: RED CELL DISTRIBUTION WIDTH 15.8 % (11.5-14.5)
[2019-04-28 01:16] LABS: ALBUMIN 3.9 g/dL (3.4-5.0); BILIRUBIN TOTAL 0.4 mg/dL (0.20-1.00); CALCIUM 8.9 mg/dL (8.5-10.1); CARBON DIOXIDE 31.4 mmol/L (21-32); CREATININE SERUM 1.5 mg/dL (0.7-1.3); TOTAL PROTEIN, SERUM 7.6 g/dL (6.4-8.2)
[2019-04-28 01:20] LABS: POTASSIUM SERUM 2.1 mmol/L (3.5-5.1)
[2019-04-28] MEDS ORDERED: PRO30 PO (02:33)
[2019-04-28] MEDS ORDERED: CARVEDILOL12.5 M1 PO (02:33)
[2019-04-28] MEDS ORDERED: FUROSEMIDE40 MG PO (02:33)
[2019-04-28 02:59] LABS: UA SPECIFIC GRAVITY 1.015 (1.005-1.035); microscopic required? YES; urine erythrocyte TRACE (NEGATIVE)
[2019-04-28 03:50] LABS: AMPHETAMINE QUAL UR NONE DETECTED (See below)
[2019-04-28 03:58] LABS: MAGNESIUM 2.1 mg/dL (1.8-2.4); PHOSPHOROUS 3.3 mg/dL (2.5-4.9)
[2019-04-28 04:27] LABS: FREE THYROXINE INDEX 0.6 ug/dL (1.4-4.5)
[2019-04-28 07:28] LABS: PLATELET COUNT 177 x10^3mcL (130-400); RED CELL DISTRIBUTION WIDTH 15.9 % (11.5-14.5)
[2019-04-28 07:39] LABS: CALCIUM 8.2 mg/dL (8.5-10.1); CARBON DIOXIDE 31.8 mmol/L (21-32); CREATININE SERUM 1.3 mg/dL (0.7-1.3); GFR1 > 60 mL/min; GLUCOSE SERUM 99 mg/dL (74-106); MAGNESIUM 2.1 mg/dL (1.8-2.4); PHOSPHOROUS 2.9 mg/dL (2.5-4.9)
[2019-04-28 07:44] LABS: CHLORIDE SERUM 106 mmol/L (98-107); SODIUM SERUM 146 mmol/L (136-145)
[2019-04-28 08:14] LABS: POTASSIUM SERUM 2.2 mmol/L (3.5-5.1)
[2019-04-28 08:15] VITALS: BP 168/107
[2019-04-28 13:34] VITALS: BP 174/103
[2019-04-28 15:47] VITALS: BP 171/99
[2019-04-28 16:50] VITALS: BP 181/107
[2019-04-28 20:42] VITALS: BP 149/84
[2019-04-29 00:10] VITALS: BP 149/84
[2019-04-29 06:10] VITALS: BP 144/99
[2019-04-29 07:38] LABS: CALCIUM 8.7 mg/dL (8.5-10.1); CARBON DIOXIDE 26.6 mmol/L (21-32); CHLORIDE SERUM 107 mmol/L (98-107); CREATININE SERUM 1.1 mg/dL (0.7-1.3); GFR1 > 60 mL/min; GLUCOSE SERUM 142 mg/dL (74-106); MAGNESIUM 1.9 mg/dL (1.8-2.4); PHOSPHOROUS 1.2 mg/dL (2.5-4.9); SODIUM SERUM 145 mmol/L (136-145)
[2019-04-29 07:40] LABS: POTASSIUM SERUM 2.3 mmol/L (3.5-5.1)
[2019-04-29 07:52] LABS: BASOPHIL % 0.2 % (0-2); PLATELET COUNT 206 x10^3mcL (130-400)
[2019-04-29 08:30] LABS: RED CELL DISTRIBUTION WIDTH 16.3 % (11.5-14.5)
[2019-04-29 09:17] VITALS: BP 162/100
[2019-04-29 10:52] VITALS: BP 162/100
[2019-04-29 16:16] LABS: CALCIUM 8.6 mg/dL (8.5-10.1); CARBON DIOXIDE 26.5 mmol/L (21-32); CHLORIDE SERUM 100 mmol/L (98-107); CREATININE SERUM 1.2 mg/dL (0.7-1.3); GFR1 > 60 mL/min; GLUCOSE SERUM 167 mg/dL (74-106); SODIUM SERUM 136 mmol/L (136-145)
[2019-04-29 16:32] LABS: POTASSIUM SERUM 2.4 mmol/L (3.5-5.1)
[2019-04-29 17:25] VITALS: BP 162/92
[2019-04-29 22:01] VITALS: BP 157/98
[2019-04-30 05:26] VITALS: BP 166/99
[2019-04-30 06:41] LABS: BASOPHIL % 0.2 % (0-2); PLATELET COUNT 197 x10^3mcL (130-400)
[2019-04-30 06:50] VITALS: BP 150/75
[2019-04-30 06:58] LABS: CALCIUM 8.8 mg/dL (8.5-10.1); CARBON DIOXIDE 27.9 mmol/L (21-32); CHLORIDE SERUM 109 mmol/L (98-107); CREATININE SERUM 1.2 mg/dL (0.7-1.3); GFR1 > 60 mL/min; GLUCOSE SERUM 93 mg/dL (74-106); MAGNESIUM 2.1 mg/dL (1.8-2.4); PHOSPHOROUS 3.9 mg/dL (2.5-4.9); SODIUM SERUM 147 mmol/L (136-145)
[2019-04-30 07:08] LABS: RED CELL DISTRIBUTION WIDTH 16.2 % (11.5-14.5)
[2019-04-30 07:17] LABS: POTASSIUM SERUM 2.7 mmol/L (3.5-5.1)
[2019-04-30 07:52] VITALS: BP 180/108
[2019-04-30 11:59] LABS: MAGNESIUM 2.1 mg/dL (1.8-2.4); PHOSPHOROUS 3.4 mg/dL (2.5-4.9)
[2019-04-30 12:12] LABS: FREE T4 1.08 ng/dL (0.76-1.46); FREE THYROXINE INDEX 3.2 ug/dL (1.4-4.5); T4(THYROXINE) 9.3 ug/dL (4.7-13.3)
[2019-04-30 12:17] LABS: T3 TOTAL 0.82 ng/mL
[2019-04-30 12:26] LABS: CALCIUM 8.9 mg/dL (8.5-10.1); CARBON DIOXIDE 30.1 mmol/L (21-32); CHLORIDE SERUM 108 mmol/L (98-107); CREATININE SERUM 1.1 mg/dL (0.7-1.3); GFR1 > 60 mL/min; GLUCOSE SERUM 102 mg/dL (74-106); SODIUM SERUM 147 mmol/L (136-145)
[2019-04-30 12:49] VITALS: BP 179/99
[2019-04-30 12:50] LABS: BASOPHIL % 0 % (0-2); PLATELET COUNT 211 x10^3mcL (130-400); RED CELL DISTRIBUTION WIDTH 16.6 % (11.5-14.5)
[2019-04-30 18:04] VITALS: BP 147/96
[2019-04-30 20:51] VITALS: BP 139/96
[2019-05-01] VITALS (8 sets, daily range): BP systolic 142–178; BP diastolic 74–104
[2019-05-01 06:41] LABS: BASOPHIL % 0.7 % (0-2); PLATELET COUNT 224 x10^3mcL (130-400)
[2019-05-01 07:09] LABS: CALCIUM 8.8 mg/dL (8.5-10.1); CARBON DIOXIDE 28.1 mmol/L (21-32); CHLORIDE SERUM 107 mmol/L (98-107); CREATININE SERUM 1.1 mg/dL (0.7-1.3); GFR1 > 60 mL/min; GLUCOSE SERUM 87 mg/dL (74-106); MAGNESIUM 2.1 mg/dL (1.8-2.4); PHOSPHOROUS 3.8 mg/dL (2.5-4.9); SODIUM SERUM 144 mmol/L (136-145)
[2019-05-01 07:23] LABS: POTASSIUM SERUM 2.6 mmol/L (3.5-5.1)
[2019-05-01 07:29] LABS: RED CELL DISTRIBUTION WIDTH 16.5 % (11.5-14.5)
[2019-05-01 16:38] LABS: CARBON DIOXIDE 29.9 mmol/L (21-32); CHLORIDE SERUM 108 mmol/L (98-107); GLUCOSE SERUM 82 mg/dL (74-106); POTASSIUM SERUM 3.1 mmol/L (3.5-5.1); SODIUM SERUM 144 mmol/L (136-145)
[2019-05-01 16:39] LABS: CALCIUM 8.4 mg/dL (8.5-10.1); CREATININE SERUM 1.2 mg/dL (0.7-1.3); GFR1 > 60 mL/min
[2019-05-02 04:27] VITALS: BP 169/100
[2019-05-02 06:30] LABS: BASOPHIL % 1.1 % (0-2); PLATELET COUNT 211 x10^3mcL (130-400)
[2019-05-02 06:45] LABS: RED CELL DISTRIBUTION WIDTH 16.3 % (11.5-14.5)
[2019-05-02 06:59] LABS: CALCIUM 8.6 mg/dL (8.5-10.1); CARBON DIOXIDE 28.8 mmol/L (21-32); CHLORIDE SERUM 107 mmol/L (98-107); GFR1 > 60 mL/min; GLUCOSE SERUM 94 mg/dL (74-106); MAGNESIUM 2.4 mg/dL (1.8-2.4); PHOSPHOROUS 3.4 mg/dL (2.5-4.9); SODIUM SERUM 141 mmol/L (136-145)
[2019-05-02 07:00] LABS: POTASSIUM SERUM 2.8 mmol/L (3.5-5.1)
[2019-05-02 08:41] VITALS: BP 145/89
[2019-05-02] MEDS ORDERED: ATORVASTATIN CA40 M1 PO (14:27)
[2019-05-02] MEDS ORDERED: CLA10 PO (14:27)
[2019-05-02] MEDS ORDERED: ZES5 PO (14:28)
[2019-05-02] MEDS ORDERED: ADA30 PO (14:28)
[2019-05-02] MEDS ORDERED: CORE25 PO (14:28)
[2019-05-02] MEDS ORDERED: ALD50 PO (14:29)
[2019-05-02] MEDS ORDERED: NOVAPLUS F0.05 MG/Ac (14:30)
[2019-05-02] MEDS ORDERED: KLOR-CON M2020 MEQ PO (14:31)
[2019-05-02 15:03] VITALS: BP 166/106
[2019-05-02 15:48] VITALS: BP 150/99
[2019-05-02 16:39] LABS: SODIUM SERUM 143 mmol/L (136-145)
[2019-05-02 16:40] LABS: CALCIUM 8.2 mg/dL (8.5-10.1); CARBON DIOXIDE 28.1 mmol/L (21-32); CHLORIDE SERUM 107 mmol/L (98-107); CREATININE SERUM 1.2 mg/dL (0.7-1.3); GFR1 > 60 mL/min; GLUCOSE SERUM 129 mg/dL (74-106); POTASSIUM SERUM 3.8 mmol/L (3.5-5.1)
[2019-05-02 16:52] VITALS: BP 150/99
== END 2019-05-02 18:10 | disposition home or self-care (01) | DRG 280 ==
LOC: ED 23:20 → DU 04-28 01:35
PROVIDERS: Emergency Medicine; Internal Medicine; ADMIT Family Medicine
DX: I21.4 Non-ST elevation (NSTEMI) myocardial infarction (principal); I50.23 Acute on chronic systolic (congestive) heart failure; N17.0 Acute kidney failure with tubular necrosis; I42.9 Cardiomyopathy, unspecified; Z95.0 Presence of cardiac pacemaker; E87.6 Hypokalemia; I11.0 Hypertensive heart disease with heart failure; I50.9 Heart failure, unspecified; E87.8 Other disorders of electrolyte and fluid balance, not elsewhere classified; E03.9 Hypothyroidism, unspecified; J06.9 Acute upper respiratory infection, unspecified; J01.90 Acute sinusitis, unspecified; F43.20 Adjustment disorder, unspecified
CPT/HCPCS: 36600; 82962; 83880; 84439; 87804; 90658; G0378; J0360; J1650; J1885; J2060; J2920; J2930; J3480; J3490; J7030; J7040; J7620; J7626; Q0092; Q9967

== ENCOUNTER 2020-04-17 11:10 | Inpatient (IN) | payer SELFPAY ==
[~2020-04-17] VITALS: Ht 160 cm; Wt 73.9 kg
[~2020-04-17 11:10] MED LIST changes: +ALD50 PO; +CLA10 PO; +NOVAPLUS F0.05 MG/Ac; +PRO30 PO; +ZES5 PO
[2020-04-17 12:30] LABS: BASOPHIL % 0.5 % (0.2-1.5); PLATELET COUNT 276 x10^3mcL (152-348)
[2020-04-17 12:45] LABS: BILIRUBIN TOTAL 0.9 mg/dL (0.20-1.00); CALCIUM 8.7 mg/dL (8.5-10.1); CARBON DIOXIDE 32.8 mmol/L (21-32); CREATININE SERUM 1.7 mg/dL (0.7-1.3); TOTAL PROTEIN, SERUM 7.5 g/dL (6.4-8.2)
[2020-04-17 12:52] LABS: ALBUMIN 2.6 g/dL (3.4-5.0); POTASSIUM SERUM 2.7 mmol/L (3.5-5.1)
[2020-04-17 12:53] LABS: C REACTIVE PROTEIN 24.9 mg/dL (<=0.9)
[2020-04-17] MEDS ORDERED: NORCO1 TA2 PO (13:21)
[2020-04-17 13:39] LABS: RED CELL DISTRIBUTION WIDTH 14.9 % (12.1-16.2)
[2020-04-17 15:22] LABS: T3 TOTAL 0.81 ng/mL
[2020-04-17 15:32] LABS: FREE T4 1.17 ng/dL (0.76-1.46); FREE THYROXINE INDEX 2.6 ug/dL (1.4-4.5); T4(THYROXINE) 7.8 ug/dL (4.7-13.3)
[2020-04-17 16:16] LABS: MAGNESIUM 1.5 mg/dL (1.8-2.4); PHOSPHOROUS 2.9 mg/dL (2.5-4.9)
[2020-04-17 16:29] LABS: CHOLESTEROL/HDL RATIO 5.4
[2020-04-17 22:13] LABS: microscopic required? YES; urine erythrocyte NEGATIVE (NEGATIVE)
[2020-04-17 23:05] VITALS: BP 136/80
[2020-04-18 01:47] VITALS: Ht 160 cm; Wt 73.9 kg
[2020-04-18 05:13] LABS: BASOPHIL % 0.8 % (0.2-1.5); PLATELET COUNT 291 x10^3mcL (152-348)
[2020-04-18 05:55] VITALS: BP 131/80
[2020-04-18 06:29] LABS: RED CELL DISTRIBUTION WIDTH 14.7 % (12.1-16.2)
[2020-04-18 07:56] VITALS: BP 135/79
[2020-04-18 10:51] VITALS: BP 100/64
[2020-04-18 11:33] VITALS: BP 143/84
[2020-04-18 16:01] VITALS: BP 135/80
[2020-04-18 16:09] LABS: BILIRUBIN TOTAL 0.3 mg/dL (0.20-1.00); CALCIUM 8.5 mg/dL (8.5-10.1); CARBON DIOXIDE 29.1 mmol/L (21-32); CREATININE SERUM 1.8 mg/dL (0.7-1.3); TOTAL PROTEIN, SERUM 6.9 g/dL (6.4-8.2)
[2020-04-18 16:11] LABS: ALBUMIN 2.5 g/dL (3.4-5.0); POTASSIUM SERUM 2.4 mmol/L (3.5-5.1)
[2020-04-18 20:34] VITALS: BP 128/72
[2020-04-18 23:08] LABS: CALCIUM 8.8 mg/dL (8.5-10.1); CARBON DIOXIDE 27.1 mmol/L (21-32); CREATININE SERUM 1.5 mg/dL (0.7-1.3); MAGNESIUM 2.2 mg/dL (1.8-2.4); PHOSPHOROUS 2.9 mg/dL (2.5-4.9)
[2020-04-18 23:09] LABS: POTASSIUM SERUM 2.7 mmol/L (3.5-5.1)
[2020-04-19 04:55] VITALS: BP 145/84
[2020-04-19 07:54] LABS: BASOPHIL % 0.9 % (0.2-1.5); PLATELET COUNT 390 x10^3mcL (152-348)
[2020-04-19 08:50] LABS: CALCIUM 8.4 mg/dL (8.5-10.1); CARBON DIOXIDE 30.5 mmol/L (21-32); CHLORIDE SERUM 103 mmol/L (98-107); CREATININE SERUM 1.3 mg/dL (0.7-1.3); GFR1 > 60 mL/min; GLUCOSE SERUM 113 mg/dL (74-106); MAGNESIUM 2.3 mg/dL (1.8-2.4); PHOSPHOROUS 3.9 mg/dL (2.5-4.9); SODIUM SERUM 144 mmol/L (136-145)
[2020-04-19 08:56] LABS: POTASSIUM SERUM 2.3 mmol/L (3.5-5.1)
[2020-04-19 09:25] VITALS: BP 147/89
[2020-04-19 13:46] VITALS: BP 138/95
[2020-04-19 17:02] VITALS: BP 154/94
[2020-04-19 20:30] VITALS: BP 142/79
[2020-04-20 05:42] VITALS: BP 163/101
[2020-04-20 07:33] LABS: BASOPHIL % 0.8 % (0.2-1.5)
[2020-04-20 07:41] LABS: PLATELET COUNT 425 x10^3mcL (152-348)
[2020-04-20 07:57] LABS: CALCIUM 8.2 mg/dL (8.5-10.1); CARBON DIOXIDE 31.5 mmol/L (21-32); CHLORIDE SERUM 106 mmol/L (98-107); CREATININE SERUM 1.1 mg/dL (0.7-1.3); GFR1 > 60 mL/min; GLUCOSE SERUM 85 mg/dL (74-106); PHOSPHOROUS 2.8 mg/dL (2.5-4.9); SODIUM SERUM 147 mmol/L (136-145)
[2020-04-20 08:41] VITALS: BP 164/96
[2020-04-20 09:32] LABS: POTASSIUM SERUM 2.2 mmol/L (3.5-5.1)
[2020-04-20 12:01] VITALS: BP 146/91
[2020-04-20 17:43] VITALS: BP 158/87
[2020-04-20 20:55] VITALS: BP 168/101
[2020-04-20 21:15] LABS: CALCIUM 8.6 mg/dL (8.5-10.1); CARBON DIOXIDE 31.6 mmol/L (21-32); CHLORIDE SERUM 107 mmol/L (98-107); CREATININE SERUM 1.2 mg/dL (0.7-1.3); GFR1 > 60 mL/min; GLUCOSE SERUM 170 mg/dL (74-106); SODIUM SERUM 147 mmol/L (136-145)
[2020-04-20 21:21] LABS: POTASSIUM SERUM 2.8 mmol/L (3.5-5.1)
[2020-04-20 23:20] VITALS: BP 158/78
[2020-04-21 04:55] VITALS: BP 165/101
[2020-04-21 06:15] VITALS: BP 155/85
[2020-04-21 08:05] VITALS: BP 186/108
[2020-04-21 08:42] LABS: CALCIUM 8.1 mg/dL (8.5-10.1); CARBON DIOXIDE 29.8 mmol/L (21-32); CHLORIDE SERUM 109 mmol/L (98-107); GFR1 > 60 mL/min; GLUCOSE SERUM 79 mg/dL (74-106); MAGNESIUM 1.9 mg/dL (1.8-2.4); PHOSPHOROUS 2.8 mg/dL (2.5-4.9); SODIUM SERUM 146 mmol/L (136-145)
[2020-04-21 09:17] LABS: POTASSIUM SERUM 2.5 mmol/L (3.5-5.1)
[2020-04-21 09:44] LABS: ALBUMIN 2.4 g/dL (3.4-5.0); BILIRUBIN DIRECT 0.16 mg/dL (0.0-0.2); BILIRUBIN TOTAL 0.36 mg/dL (0.20-1.00); TOTAL PROTEIN, SERUM 6.2 g/dL (6.4-8.2)
[2020-04-21 11:30] LABS: PLATELET COUNT 407 x10^3mcL (130-400); RED CELL DISTRIBUTION WIDTH 14.6 % (11.5-14.5)
[2020-04-21 11:31] LABS: BASOPHIL % 0.7 % (0-2)
[2020-04-21 13:22] VITALS: BP 118/85
[2020-04-21] MEDS ORDERED: LIPI20 PO (15:59)
[2020-04-21] MEDS ORDERED: BAY PO (16:01)
[2020-04-21] MEDS ORDERED: KLOR-CON M2020 MEQ PO (16:02)
[2020-04-21] MEDS ORDERED: ALDACTONE100 MG PO (16:03)
[2020-04-21] MEDS ORDERED: ELIQUIS2.5 MG PO (16:04)
[2020-04-21] MEDS ORDERED: LASIX20 MG PO (16:05)
[2020-04-21] MEDS ORDERED: MELATONIN3 M4 PO (16:06)
[2020-04-21 17:15] VITALS: BP 139/86
[2020-04-21 19:55] VITALS: BP 140/52
[2020-04-22] VITALS (7 sets, daily range): BP systolic 136–173; BP diastolic 84–109
[2020-04-22] MEDS ORDERED: CARVEDILOL12.5 M1 PO (12:49)
[2020-04-22 14:07] LABS: BASOPHIL % 0.3 % (0.2-1.5)
[2020-04-22 14:30] LABS: PLATELET COUNT 470 x10^3mcL (152-348)
[2020-04-22 15:02] LABS: ALKALINE PHOSPHATASE 315 U/L (46-116); ALT/SGPT 222 U/L (16-63); AST/SGOT 81 U/L (15-37); BILIRUBIN DIRECT 0.17 mg/dL (0.0-0.2); BILIRUBIN TOTAL 0.46 mg/dL (0.20-1.00); CARBON DIOXIDE 27.5 mmol/L (21-32); CHLORIDE SERUM 107 mmol/L (98-107); CREATININE SERUM 1.2 mg/dL (0.7-1.3); GFR1 > 60 mL/min; GLUCOSE SERUM 105 mg/dL (74-106); PHOSPHOROUS 2.4 mg/dL (2.5-4.9); POTASSIUM SERUM 3.2 mmol/L (3.5-5.1); SODIUM SERUM 144 mmol/L (136-145); TOTAL PROTEIN, SERUM 7.3 g/dL (6.4-8.2)
[2020-04-22 15:04] LABS: ALBUMIN 2.8 g/dL (3.4-5.0)
[2020-04-22] MEDS ORDERED: LOTENSIN20 MG PO (17:48)
[2020-04-23 10:19] LABS: ALBUMIN 2.8 g/dL (3.4-5.0); BILIRUBIN DIRECT 0.16 mg/dL (0.0-0.2); BILIRUBIN TOTAL 0.45 mg/dL (0.20-1.00); TOTAL PROTEIN, SERUM 7.2 g/dL (6.4-8.2)
== END 2020-04-23 11:21 | disposition home or self-care (01) | DRG 177 ==
LOC: ED 11:10 → DU 14:27 → MU 04-22 10:35
PROVIDERS: Emergency Medicine; Family Medicine; ADMIT Internal Medicine; ATTEND Internal Medicine
PROC: XW033E5 Introduction of Remdesivir Anti-infective into Peripheral Vein, Percutaneous Approach, New Technology Group 5 (ICD-10-PCS; principal; 2020-04-20)
DX: U07.1 COVID-19 (principal); E43 Unspecified severe protein-calorie malnutrition; J96.01 Acute respiratory failure with hypoxia; I50.23 Acute on chronic systolic (congestive) heart failure; J12.82 Pneumonia due to coronavirus disease 2019; N17.9 Acute kidney failure, unspecified; I25.10 Atherosclerotic heart disease of native coronary artery without angina pectoris; Z95.0 Presence of cardiac pacemaker; E78.5 Hyperlipidemia, unspecified; I25.2 Old myocardial infarction; I11.0 Hypertensive heart disease with heart failure; Z79.899 Other long term (current) drug therapy; Z83.3 Family history of diabetes mellitus; E87.6 Hypokalemia; I25.5 Ischemic cardiomyopathy; Z68.28 Body mass index [BMI] 28.0-28.9, adult
CPT/HCPCS: 36600; 83880; 84439; 85378; 87804; 94150; G0378; J0456; J0696; J1100; J1650; J1940; J3480; J3535; J7040; J7050; J7060; U0003